=== PATIENT | female | born 1990 | race Caucasian/White ===

== ENCOUNTER 2017-05-24 11:43 | Emergency (ER) | payer OTHER ==
[~2017-05-24] VITALS: Ht 162.6 cm; Wt 78.0 kg
[2017-05-24 11:49] VITALS: BP 149/88
--- NOTE | 2017-05-24 11:54 | NUR ---
PT TRIAGED AND RETURNED TO LOBBY WAITING FOR MSE.
--- NOTE | 2017-05-24 12:06 | NUR ---
PATIENT PRESENTS TO ED WITH C/O BILATERAL UPPER THIGH PAIN x YESTERDAY @ 0800. PT DENIES INJURY OR TRAUMA.MEDS OF OTC TYLENOL .DENIES N/V/D; SKIN IS PINK/WARM/DRY; AAOX4 WITH EVEN AND STEADY GAIT; LUNGS CLEAR BL; HR EVEN AND REGULAR; PT DENIES ANY FEVER, CP, SOB, OR COUGH AT THIS TIME; PATIENT STATES PAIN OF 7/10 AT THIS TIME; PATIENT POSITIONED FOR COMFORT; HOB ELEVATED; BEDRAILS UP X2; BED DOWN. ER MD MADE AWARE OF PT STATUS.
--- NOTE | 2017-05-24 12:20 | NUR ---
DR COOPER EVALUATING THE PT.
[2017-05-24] MEDS ORDERED: KETOROLAC 60 MG/2 ML VIAL IM ONE (12:25)
--- NOTE | 2017-05-24 12:48 | NUR ---
PT WAS SENT TO THE LOBBY;NO ACUTE DISTRESS NOTED;
[2017-05-24 12:49] LABS: HEMOGLOBIN 15.2 g/dL (12.0-16.0); MEAN CORPUSCULAR HEMOGLOBIN 28 pg (27-31); MEAN CORPUSCULAR HGB CONC 34 g/dL (33-37); MEAN CORPUSCULAR VOLUME 84 fL (80-94); PLATELET COUNT (AUTO) 358 K/uL (140-450); WHITE BLOOD COUNT (AUTO) 12.1 K/uL (4.8-10.8)
[2017-05-24 12:59] LABS: ANION GAP 12.2 (8-16); CARBON DIOXIDE 29.9 mmol/L (21-32); CREATININE 0.7 mg/dL (0.6-1.3); POTASSIUM 4.1 mmol/L (3.5-5.1)
[2017-05-24 13:02] LABS: EOSINOPHILS % (MANUAL) 1 % (0-4); LYMPHOCYTES % (MANUAL) 13 % (20-46); MONOCYTES % (MANUAL) 4 % (5-12)
[2017-05-24 13:04] LABS: APPEARANCE,URINE SL CLOUDY (CLEAR); BARBITURATE, URINE NEG. ng/ml (NEG <=200); BENZODIAZEPINE, URINE NEG. ng/mL (NEG <=200); BILIRUBIN,URINE NEGATIVE (NEGATIVE); BLOOD, URINE 1+ (NEGATIVE); CANNABINOID, URINE NEG. ng/mL (NEG <=50); COCAINE, URINE NEG. ng/mL (NEG <=300); COLOR,URINE YELLOW (YELLOW); LEUKOCYTE ESTERASE ,URINE 2+ (NEGATIVE); NITRITE, URINE NEGATIVE (NEGATIVE); OPIATE, URINE NEG. ng/mL (NEG <=2000); PH,URINE 6.5 (5.0-9.0); PHENCYCLIDINE SCREEN,URINE NEG. ng/mL (NEG <=25); UGLUCOSE NEGATIVE (NEGATIVE)
[2017-05-24 13:04] LABS: ALBUMIN 3.5 g/dL (3.4-5.0); MAGNESIUM 1.9 mg/dL (1.8-2.4); PHOSPHORUS 3.3 mg/dL (2.5-4.9); TOTAL BILIRUBIN 0.6 mg/dL (0.0-1.0)
[2017-05-24 13:19] LABS: RBC,URINE 3-10 (FEW) /HPF (0-5); WBC,URINE 6-15 (FEW) /HPF (0-5)
--- NOTE | 2017-05-24 13:56 | NUR ---
PATIENT TOOK IN BACK TO OF#3 PER ERMD FOR FARTHER EVAL. PATIENT AMBULATED WITH STEADY GAIT. PER PATIENT,PAIN MUCH BETTER/WALKING BETTER
[2017-05-24 14:19] VITALS: BP 125/75
--- NOTE | 2017-05-24 14:19 | NUR ---
Patient discharged with v/s stable. Written and verbal after care instructions given and explained. Patient verbalized understanding. Ambulatory with steady gait. All questions addressed prior to discharge. Advised to follow up with PMD.
== END 2017-05-24 14:19 | disposition home or self-care (01) ==
LOC: MED 11:43
DX: M79.604 Pain in right leg (principal); M79.605 Pain in left leg; B34.9 Viral infection, unspecified; F15.90 Other stimulant use, unspecified, uncomplicated
CPT/HCPCS: 36415; 80053; 80305; 81001; 81025; 82550; 83735; 84100; 85025; 87086; 96372; 99284; J1885